=== PATIENT | male | born 1975 | race Caucasian/White ===

== ENCOUNTER 2021-01-14 16:39 | Outpatient (CLI) | payer OTHER, SELFPAY ==
[2021-01-14 17:35] LABS: Hematocrit 37.8 % (42.0-52.0); Hemoglobin 12.4 g/dL (14.0-18.0); Mean Corpuscular HGB Conc 32.8 g/dl (32-36); Mean Corpuscular Hemoglobin 28.1 pg (26-34); Mean Corpuscular Volume 85.7 fl (80-100); Mean Platelet Volume 11.6 fl (7.4-10.4); Platelet Count Result 244 k/mm3 (150-375); Red Blood Count 4.41 M/mm3 (4.6-6.20); Red Cell Distribution Width 13.7 % (11.5-14.5); White Blood Count 6.3 K/mm3 (4.5-10.0)
[2021-01-14 17:45] LABS: Alanine Aminotransferase 28 U/L (4-50); Albumin Level 4.2 g/dL (3.5-5.1); Alkaline Phosphatase 67 U/L (38-126); Anion Gap 8 mmol/L (8-16); Aspartate Amino Transferase 28 U/L (17-59); Bilirubin,Total 0.3 mg/dL (0.2-1.3); Blood Urea Nitrogen 12 mg/dL (9-20); Calcium 9.1 mg/dL (8.4-10.2); Carbon Dioxide 27 mmol/L (22-30); Chloride 104 mmol/L (98-107); Estimated Glomerular Filt Rate > 60; Glucose 89 mg/dL (75-110); Sodium 139 mmol/L (137-145)
[2021-01-14 18:16] LABS: Prostate Specific Antigen 0.6 ng/mL (< OR = 4.0)
== END 2021-01-14 16:40 | disposition home or self-care (01) ==
PROVIDERS: PCP Family Medicine; Visit Provider Nurse Practitioner Family
DX: K92.1 Melena (principal)
CPT/HCPCS: 36415; 80053; 84153; 85027

== ENCOUNTER → 2021-02-15 02:23 | Outpatient (CLI) | payer OTHER, SELFPAY ==
[2021-02-15 17:20] LABS: SARS-CoV-2 RNA PCR Negative
== END ==
PROVIDERS: PCP Family Medicine; Visit Provider Internal Medicine Gastroenterology
DX: Z01.812 Encounter for preprocedural laboratory examination (principal); Z20.822 Contact with and (suspected) exposure to COVID-19
CPT/HCPCS: C9803; U0003; U0005

== ENCOUNTER 2021-02-18 03:23 | Day surgery (SDC) | payer OTHER, SELFPAY ==
[2021-02-08 13:08] VITALS: BMI 28.3
[2021-02-18 10:31] VITALS: BP 121/79; PULSE 76; RESP 18; TEMP 36.5; O2SAT 99; BMI 29.6
[2021-02-18] MEDS: LACTATED RINGERS 1,000 ML 150 ML IV CONT (10:41)
--- NOTE | 2021-02-18 10:59 | WPDANESEPPF ---
Anes - Initial Pre Proc Eval Procedure: Operation Date: 02/18/21 11:00 Proposed Procedures p Colonoscopy - Aris Licea MD Date/Time: 02/18/21 10:59 Surgeon: Aris Licea MD Pre Op Diagnosis: melena Patient Data Age: 45 Gender: M Height: 1.88 m Weight: 104.6 kg Last Vital Signs Temp 36.5 C 02/18/21 10:31 Pulse 76 02/18/21 10:31 Resp 18 02/18/21 10:31 BP 121/79 02/18/21 10:31 Pulse Ox 99 02/18/21 10:31 Allergies Allergy/AdvReac Type Severity Reaction Status Date / Time No Known Allergies Allergy Mild Verified 02/18/21 10:30 Home Medications Medication Instructions Recorded Confirmed Type No Home Medications 02/08/21 02/08/21 History Patient hx anesthesia problems: none Family hx anesthesia problems: none PMFSH Past Medical History Medical History (Updated 01/17/21 @ 08:50 by GOLDIE Rodriguez) BMI 30.0-30.9,adult BMI 35.0-35.9,adult Surgical History Surgical History (Updated 02/18/21 @ 10:59 by Gray De Los Santos MD) H/O colonoscopy Family History Family History Father No problems noted. Mother No problems noted. Sibling No problems noted. 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 Questions were solicited and answers provided to the satisfaction of the patient/family/POA.
--- NOTE | 2021-02-18 11:20 | PM.HPGS ---
History of Present Illness History of Present Illness Consent: Risks, benefits, and alternatives have been discussed and questions answered. Patient agrees to proceed with procedure. Chief complaint: melena Narrative: Rafal Rodriguez is a 45 year old male with rectal bleeding, last colonoscopy ~ 3-4 years ago. Hb 12 Review of Systems Constitutional: Constitutional: Denies headache(s) and Denies weakness Eyes: Eyes: Denies blurry vision ENT: Reports Normal hearing present, Denies headache(s) and Denies neck pain Cardiovascular: Cardiovascular: Denies chest pain and Denies dyspnea Respiratory: Respiratory: Denies dyspnea Gastrointestinal: Gastrointestinal: Reports no additional gastrointestinal complaints Genitourinary: Genitourinary: Denies dysuria Musculoskeletal: Musculoskeletal: Denies neck pain Integumentary/Breasts: Skin/Breast: Denies dry skin Neurologic: Reports Normal hearing present, Denies headache(s) and Denies weakness Psychiatric: Psychiatric: Denies anxiety Endocrine: Endocrine: Denies change in body appearance Hematologic/Lymphatic: Hematologic/Lymphatic: Denies easy bleeding Allergic/Immunologic: Allergic/Immunologic: Denies urticaria [facility] Past Medical History Medical History (Updated 01/17/21 @ 08:50 by GOLDIE Rodriguez) BMI 30.0-30.9,adult BMI 35.0-35.9,adult Surgical History Surgical History (Updated 02/18/21 @ 10:59 by Gray De Los Santos MD) H/O colonoscopy Family History Family History Father No problems noted. Mother No problems noted. Sibling No problems noted. 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 Meds Home Medications and Allergies Home Medications Medication Instructions Recorded Confirmed Type No Home Medications 02/08/21 02/08/21 History Allergies Allergy/AdvReac Type Severity Reaction Status Date / Time No Known Allergies Allergy Mild Verified 02/18/21 10:30 Vital Signs Vital Signs - 24 hr 02/18/21 10:31 Temperature 97.7 F Pulse Rate 76 Respiratory Rate 18 Blood Pressure 121/79 Pulse Oximetry 99 Exam Const: General: comfortable and no acute distress HENMT: General nose exam: Normal nares present Eyes: General: appearance normal, both eyes and all related structures Neck: Neck: no JVD Resp: Auscultation: clear to auscultation bilaterally Cardio: Rate: regular rate Rhythm: regular rhythm GI: Inspection: non-distended GI Palp: Yes Soft to palpation Skin: General skin exam: normal color Neuro: General: gait normal Speech: normal speech Extrem: General: normal to inspection Psych: Mental Status: mental status grossly normal Assessment and Plan Assessment and plan (1) Bloody stool: Code(s): K92.1 - Melena Status: Acute Assessment and Plan: colonoscopy to assess (2) Hemorrhoid: Qualifiers: Hemorrhoid type: unspecified Qualified Code(s): K64.9 - Unspecified hemorrhoids Code(s): K64.9 - Unspecified hemorrhoids Status: Acute (3) Anemia: Code(s): D64.9 - Anemia, unspecified Status: Acute
[2021-02-18 11:41] VITALS: BP 105/68; PULSE 78; RESP 29; O2SAT 97
[2021-02-18 11:51] VITALS: BP 108/74; PULSE 71; RESP 15; O2SAT 99
[2021-02-18 12:01] VITALS: BP 115/75; PULSE 62; RESP 13; O2SAT 99
== END 2021-02-18 12:18 | disposition home or self-care (01) ==
PROVIDERS: PCP Family Medicine; Visit Provider Internal Medicine Gastroenterology
PROC: 0DJD8ZZ Inspection of Lower Intestinal Tract, Via Natural or Artificial Opening Endoscopic (ICD-10-PCS; CPT 45378; principal; 2021-02-18 11:00)
DX: D64.9 Anemia, unspecified (principal); K62.6 Ulcer of anus and rectum; K92.1 Melena; K57.30 Diverticulosis of large intestine without perforation or abscess without bleeding; K64.8 Other hemorrhoids; Z87.891 Personal history of nicotine dependence
CPT/HCPCS: 45380; 88305; C9803; J2704; J7120; U0003; U0005

== ENCOUNTER 2024-09-14 10:55 | Outpatient (CLI) | payer OTHER, SELFPAY ==
[2024-09-14 11:29] LABS: Basophils Percent Auto 0.3 % (0.2-1.2); Eosinophils Percent Auto 0.7 % (0-4.4); Hematocrit 45.3 % (42.0-52.0); Hemoglobin 14.9 g/dL (14.0-18.0); Immature Granulocyte Absolute 0.01 K/mm3 (0.00-0.031); Immature Granulocyte Percent A 0.2 % (0-0.5); Lymphocytes Absolute Auto 1.57 K/mm3 (0.9-3.2); Lymphocytes Percent Auto 27.1 % (18.3-44.2); Mean Corpuscular HGB Conc 32.9 g/dl (32-36); Mean Corpuscular Hemoglobin 29.6 pg (26-34); Mean Corpuscular Volume 89.9 fl (80-100); Mean Platelet Volume 11.4 fl (7.4-10.4); Monocytes Absolute Auto 0.5 K/mm3 (0.1-0.6); Monocytes Percent Auto 8.1 % (2.6-8.5); Neutrophils Absolute Auto 3.7 K/mm3 (1.3-6.7); Neutrophils Percent Auto 63.6 % (45.5-73.1); Platelet Count Result 234 k/mm3 (150-375); Red Blood Count 5.04 M/mm3 (4.6-6.20); Red Cell Distribution Width 12.5 % (11.5-14.5); White Blood Count 5.8 K/mm3 (4.5-10.0)
[2024-09-14 11:52] LABS: Alanine Aminotransferase 32 U/L (6-50); Albumin Level 4.5 g/dL (3.5-5.1); Alkaline Phosphatase 67 U/L (38-126); Anion Gap 9 mmol/L (4-12); Aspartate Amino Transferase 27 U/L (17-59); Bilirubin,Total 0.7 mg/dL (0.2-1.3); Blood Urea Nitrogen 11 mg/dL (9-20); Calcium 9.5 mg/dL (8.4-10.2); Carbon Dioxide 28 mmol/L (22-30); Chloride 102 mmol/L (98-107); Cholesterol 198 mg/dL (0-200); Estimated Glomerular Filt Rate > 60; Glucose 99 mg/dL (65-110); HDL Direct 38 mg/dL; Potassium 4.4 mmol/L (3.4-5.0); Sodium 139 mmol/L (137-145); Triglycerides 118 mg/dL (<150)
[2024-09-14 12:03] LABS: LDL Cholesterol Direct 126 mg/dL
--- OUTSIDE RECORDS SUMMARY | 2024-09-14 12:33 | XMS_ITS | Referral Summary ---
Author Organization [facility] Address [address] [place] [phone] Care Team Providers Care Food Manager Name Role Phone Manuel Fall MD Primary Care Provider [phone] Aris Fajardo MD Unavailable + Seven Almazan MD Unavailable [phone] Allergies No known active allergies Medications hydrocortisone acetate 30 mg suppository UNWRAP AND INSERT 1 SUPPOSITORY RECTALLY DAILY 1 Active hydrocortisone-p ramoxine (PRAMCORT) 1-1 % rectal cream APPLY RECTALLY TO THE AFFECTED AREA 2 TO 3 TIMES DAILY NEEDED FOR ITCHING 1 Active Active Problems Problem Noted Date Diagnosed Date Grade II hemorrhoids 03/14/2021 Social History Tobacco Use Types Packs/Day Years Used Date Smoking Tobacco: Former Cigarettes Smokeless Tobacco: Never Personal Safety Answer Date Recorded Getting School Help Needed Not on file 10/24 Sex and Gender Information Value Date Recorded Sex Assigned at Not on file Legal Sex Male 2:18 PM CDT Gender Identity Not on file Sexual Orientation Not on file Last Filed Vital Signs Vital Sign Reading Time Taken Comments Blood Pressure 131/81 07/18/2021 3:20 PM HARDWOOD FLOOR FINISHER Pulse 85 07/18/2021 3:20 PM [employer]LOOR FINISHER Temperature 36.2 ??C (97.2 ??F) 07/18/2021 3:20 PM CS T Respiratory Rate - - Oxygen Saturation 96% 07/18/2021 3:20 PM H[employer] FLOOR FINISHER Inhaled Oxygen Concentration - - Weight 105.7 kg (233 lb) 07/18/2021 3:20 PM HARD[employer] FLOOR FINISHER Height 188 cm (6' 2 ) 07/18/2021 3:20 PM H[employer] FLOOR FINISHER Body Mass Index 29.92 07/18/2021 3:20 PM HARD[employer]OD FLOOR FINISHER Plan of Treatment Not on file Insurance [facility] CHOICE PLUS Care Teams Food Manager Relationship Specialty Start Date End Date Manuel Fall MD PCP - General Family Medicine 02/21/21 Aris Fajardo MD [address] [place] [address] Referring Physician Gastroenterology 03/13/21 Seven Almazan MD [id number] [place] [address] Surgeon Colon and Rectal Surgery 03/14/21
--- OUTSIDE RECORDS SUMMARY | 2024-09-14 12:33 | XMS_ITS | Clinical Summary ---
Author Organization [facility] Address [address] [place] [phone] Care Team Providers Care Hotel Engineer Name Role Phone Manuel Fall MD Primary Care Provider [phone] Arsi Fajardo MD Unavailable + Seven Almazan MD Unavailable [phone] Allergies No known active allergies Medications hydrocortisone acetate 30 mg suppository UNWRAP AND INSERT 1 SUPPOSITORY RECTALLY DAILY 1 Active hydrocortisone-p ramoxine (PRAMCORT) 1-1 % rectal cream APPLY RECTALLY TO THE AFFECTED AREA 2 TO 3 TIMES DAILY NEEDED FOR ITCHING 1 Active Active Problems Problem Noted Date Diagnosed Date Grade II hemorrhoids 03/14/2021 Surgical History Surgery Date Site/Laterality Comments COLONOSCOPY 02/18/2021 Family History Medical History Relation Name Comments Crohn's disease Brother Colon cancer Maternal Grandfather Relation Name Status Comments Brother Maternal Grandfather Social History Tobacco Use Types Packs/Day Years Used Date Smoking Tobacco: Former Cigarettes Smokeless Tobacco: Never Personal Safety Answer Date Recorded Getting School Help Needed Not on file 10/24 Sex and Gender Information Value Date Recorded Sex Assigned at Not on file Legal Sex Male 2:18 PM CDT Gender Identity Not on file Sexual Orientation Not on file Obstetrics History Last Filed Vital Signs Vital Sign Reading Time Taken Comments Blood Pressure 131/81 07/18/2021 3:20 PM [employer]LLMENT SERVICES DEAN Pulse 85 07/18/2021 3:20 PM [employer]AN Temperature 36.2 ??C (97.2 ??F) 07/18/2021 3:20 PM CS T Respiratory Rate - - Oxygen Saturation 96% 07/18/2021 3:20 PM [employer]AN Inhaled Oxygen Concentration - - Weight 105.7 kg (233 lb) 07/18/2021 3:20 PM [employer] Height 188 cm (6' 2 ) 07/18/2021 3:20 PM [employer]AN Body Mass Index 29.92 07/18/2021 3:20 PM [employer]AN Plan of Treatment Not on file Insurance [facility] CHOICE PLUS Care Teams Hotel Engineer Relationship Specialty Start Date End Date Manuel Fall MD PCP - General Family Medicine 02/21/21 Aris Fajardo MD [address] [place] [address] Referring Physician Gastroenterology 03/13/21 Seven Almazan MD [id number] [place] [address] Surgeon Colon and Rectal Surgery 03/14/21
[2024-09-14 12:55] LABS: Vitamin D 25 Hydroxy 25.1 ng/mL
== END 2024-09-14 10:56 | disposition home or self-care (01) ==
LOC: ANHLAB 10:56
PROVIDERS: PCP Family Medicine
DX: Z13.1 Encounter for screening for diabetes mellitus (principal); E55.9 Vitamin D deficiency, unspecified; Z13.220 Encounter for screening for lipoid disorders; Z13.29 Encounter for screening for other suspected endocrine disorder; Z13.0 Encounter for screening for diseases of the blood and blood-forming organs and certain disorders involving the immune mechanism
CPT/HCPCS: 36415; 80053; 80061; 82306; 84443; 85025

== ENCOUNTER 2024-11-12 09:19 | Outpatient (CLI) | payer OTHER, SELFPAY ==
--- OUTSIDE RECORDS SUMMARY | 2024-11-12 09:24 | XMS_ITS | Referral Summary ---
Author Organization [facility] Address [address] [place] [phone] Care Team Providers Care Model Technician Name Role Phone Manuel Fall MD Primary Care Provider [phone] Aris Fajardo MD Unavailable + Seven Almazan MD Unavailable [phone] Allergies No known active allergies Medications hydrocortisone [...] Comments Blood Pressure 131/81 07/18/2021 3:20 PM WHOLESALE AGRONOMIST Pulse 85 07/18/2021 3:20 PM WHOLESALE AGRONOMIST Temperature 36.2 C (97.2 F) 07/18/2021 3:20 PM WHOLESALE AGRONOMIST Respiratory Rate - - Oxygen Saturation 96% 07/18/2021 3:20 PM WHOLESALE AGRONOMIST Inhaled Oxygen Concentration - - Weight 105.7 kg (233 lb) 07/18/2021 3:20 PM WHOLESALE AGRONOMIST Height 188 cm (6' 2 ) 07/18/2021 3:20 PM WHOLESALE AGRONOMIST Body Mass Index 29.92 07/18/2021 3:20 PM WHOLESALE AGRONOMIST Plan of Treatment Not on file Insurance [facility] CHOICE PLUS Care Teams Model Technician Relationship Specialty Start Date End Date Manuel Fall MD PCP - General Family Medicine 02/21/21 Aris Fajardo MD [address] [place] [address] Referring Physician Gastroenterology 03/13/21 Seven Almazan MD [id number] [place] [address] Surgeon Colon and Rectal Surgery 03/14/21
--- OUTSIDE RECORDS SUMMARY | 2024-11-12 09:24 | XMS_ITS | Clinical Summary ---
Author Organization [facility] Address [address] [place] [phone] Care Team Providers Care Senior Product Designer Name Role Phone Manuel Fall MD Primary Care Provider [phone] Aris Fajardo MD Unavailable + Seven Almazan MD Unavailable [phone] Allergies No known active allergies Medications hydrocortisone [...] Comments Blood Pressure 131/81 07/18/2021 3:20 PM MOBILE UI DESIGNER Pulse 85 07/18/2021 3:20 PM MOBILE UI DESIGNER Temperature 36.2 C (97.2 F) 07/18/2021 3:20 PM MOBILE UI DESIGNER Respiratory Rate - - Oxygen Saturation 96% 07/18/2021 3:20 PM MOBILE UI DESIGNER Inhaled Oxygen Concentration - - Weight 105.7 kg (233 lb) 07/18/2021 3:20 PM MOBILE UI DESIGNER Height 188 cm (6' 2 ) 07/18/2021 3:20 PM MOBILE UI DESIGNER Body Mass Index 29.92 07/18/2021 3:20 PM MOBILE UI DESIGNER Plan of Treatment Not on file Insurance [facility] CHOICE PLUS Care Teams Senior Product Designer Relationship Specialty Start Date End Date Manuel Fall MD PCP - General Family Medicine 02/21/21 Aris Fajardo MD [address] [place] [address] Referring Physician Gastroenterology 03/13/21 Seven Almazan MD [id number] [place] [address] Surgeon Colon and Rectal Surgery 03/14/21
[2024-11-12 10:36] LABS: Vitamin D 25 Hydroxy 59.6 ng/mL
== END 2024-11-12 09:20 | disposition home or self-care (01) ==
LOC: ANHLAB 09:21
PROVIDERS: PCP Family Medicine; Visit Provider Nurse Practitioner Family
DX: E55.9 Vitamin D deficiency, unspecified (principal)
CPT/HCPCS: 36415; 82306

== ENCOUNTER 2025-02-16 14:49 | Outpatient (CLI) | payer OTHER, SELFPAY ==
--- NOTE | ~2025-02-16 | XR_ITS ---
EXAM/ PROCEDURE: XR knee LT min 4V - 02/16/2025 14:55 CDT HISTORY: 49 years old Male with M25.562 - Pain in left knee COMPARISON: None available TECHNIQUE: Four view(s) FINDINGS/ IMPRESSION: There are no fractures or dislocations.Joint spaces are within normal limits. Reviewed, dictated and finalized at location A.
--- OUTSIDE RECORDS SUMMARY | 2025-02-16 14:52 | XMS_ITS | Clinical Summary ---
Author Organization [facility] Address [address] [place] [phone] Care Team Providers Care Cell Room Operator Name Role Phone Manuel Fall MD Primary Care Provider [phone] Aris Fajardo MD Unavailable + Seven Almazan MD Unavailable [phone] Allergies No known active allergies Medications hydrocortisone [...] Comments Blood Pressure 131/81 07/18/2021 3:20 PM DIRECTOR OF EXTENSION WORK Pulse 85 07/18/2021 3:20 PM DIRECTOR OF EXTENSION WORK Temperature 36.2 C (97.2 F) 07/18/2021 3:20 PM DIRECTOR OF EXTENSION WORK Respiratory Rate - - Oxygen Saturation 96% 07/18/2021 3:20 PM DIRECTOR OF EXTENSION WORK Inhaled Oxygen Concentration - - Weight 105.7 kg (233 lb) 07/18/2021 3:20 PM DIRECTOR OF EXTENSION WORK Height 188 cm (6' 2) 07/18/2021 3:20 PM DIRECTOR OF EXTENSION WORK Body Mass Index 29.92 07/18/2021 3:20 PM DIRECTOR OF EXTENSION WORK Plan of Treatment Not on file Insurance [facility] CHOICE PLUS Care Teams Cell Room Operator Relationship Specialty Start Date End Date Manuel Fall MD PCP - General Family Medicine 02/21/21 Aris Fajardo MD [address] [place] [address] Referring Physician Gastroenterology 03/13/21 Seven Almazan MD [id number] [place] [address] Surgeon Colon and Rectal Surgery 03/14/21
--- OUTSIDE RECORDS SUMMARY | 2025-02-16 14:52 | XMS_ITS | Referral Summary ---
Author Organization [facility] Address [address] [place] [phone] Care Team Providers Care Sizer Hand Name Role Phone Manuel Fall MD Primary Care Provider [phone] Aris Fajardo MD Unavailable + Seven Almazan MD Unavailable Allergies No known active allergies Medications hydrocortisone [...] Comments Blood Pressure 131/81 07/18/2021 3:20 PM SUPERVISOR POST WAVE Pulse 85 07/18/2021 3:20 PM SUPERVISOR [employer] WAVE Temperature 36.2 C (97.2 F) 07/18/2021 3:20 PM SUPERVISOR [employer] WAVE Respiratory Rate - - Oxygen Saturation 96% 07/18/2021 3:20 PM SUPERVISOR [employer] WAVE Inhaled Oxygen Concentration - - Weight 105.7 kg (233 lb) 07/18/2021 3:20 PM SUPERVISOR [employer] WAVE Height 188 cm (6' 2) 07/18/2021 3:20 PM SUPERVISOR [employer] WAVE Body Mass Index 29.92 07/18/2021 3:20 PM SUPERVISOR POST WAVE Plan of Treatment Not on file Insurance [facility] CHOICE PLUS Care Teams Sizer Hand Relationship Specialty Start Date End Date Manuel Fall MD PCP - General Family Medicine 02/21/21 Aris Fajardo MD [address] [place] [address] Referring Physician Gastroenterology 03/13/21 Seven Almazan MD [phone] [place] [address] Surgeon Colon and Rectal Surgery 03/14/21
== END 2025-02-16 14:50 | disposition home or self-care (01) ==
PROVIDERS: PCP Family Medicine; Visit Provider Nurse Practitioner Family
DX: M25.562 Pain in left knee (principal)
CPT/HCPCS: 73564

== ENCOUNTER 2025-04-01 07:49 | Outpatient (CLI) | payer OTHER, SELFPAY ==
--- NOTE | 2025-04-01 08:08 | ECG_ITS ---
Test Date: 2025-04-01 08:16:22 Measurements Intervals [place] Rate: 61 P: 56 CO: 157 QRS: 38 QRSD: 110 T: 46 QT: 392 QTc: 396 Interpretive Statements SINUS RHYTHM INCOMPLETE RIGHT BUNDLE BRANCH BLOCK MINIMAL Q WAVES- INFERIOR LEADS BORDERLINE ECG No previous ECG available for comparison Electronically Signed On 04-01-2025 10:36:10 CDT by Venkata Shaffer D.O.
== END 2025-04-01 07:50 | disposition home or self-care (01) ==
PROVIDERS: PCP Nurse Practitioner Family; Visit Provider Anesthesiology
DX: K40.30 Unilateral inguinal hernia, with obstruction, without gangrene, not specified as recurrent (principal); Z87.891 Personal history of nicotine dependence
CPT/HCPCS: 36415; 86850; 86900; 86901; 93005

== ENCOUNTER 2025-04-06 01:48 | Day surgery (SDC) | payer OTHER, SELFPAY ==
[2025-03-31 12:01] VITALS: BMI 29.2
--- NOTE | 2025-03-31 12:08 | PC.NURSE ---
Report to the Outpatient Waiting Room, entrance under the green pavilion located off [facility], at time __0730am on date __04/06/25 . Planned Procedure Time: __0930am .? Time changes happen often and if your time is changed the preop area will call you the afternoon before. - You and your visitor will be asked to self-screen and do not enter if you have any COVID symptoms. Please call surgeon if you need to reschedule. - A mask is optional within the hospital at this time. Patients may have clear liquids (water, carbonated beverages, clear teas, apple juice) until 3 hours prior to surgery with a maximum of 20 ounces. - No food from midnight until time of surgery and no smoking, or chewing tobacco (or any form of nicotine). No chewing gum, candy or mints. (06:30am) Take only the following medications with a SIP of water on the morning of surgery: _NONE DO NOT STOP ANY OF YOUR OTHER PRESCRIPTION MEDICATIONS PRIOR TO SURGERY EXCEPT THE FOLLOWING Hold all vitamins and supplements for 3 days per anesthesiologist. Medications to discontinue per physician NONE Date to take last dose NONE Please no make-up, nail romanian, hairspray, perfume, deodorant, or body powder the day of surgery.? No jewelry (including any body piercings) or valuables the day of surgery, leave them at home.? Please take a shower or bath the night before, or the morning of, surgery with an antibacterial soap.? Wear comfortable, loose fitting clothing.? - Jewelry must be removed prior to entering the operating room.? Rings and piercings that are not removed may be cut off. - The hospital will not accept responsibility for valuables.? - Please leave all valuables, including medications, at home the day of surgery. If you are going home after surgery, a licensed laborer driver must drive you home.? - NO public transportation without another adult if you receive anesthesia. - We recommend that an adult stay with you for 24 hours following discharge. - We also recommend that you do not drive, make important decision, drink alcoholic beverages, or take any drugs that were not prescribed by your health care provider for at least 24 hours after your discharge time. Follow any additional instructions given to you from your surgeon. Telephone instructions given to ___Patient and asked if any additional questions and then verbalized understanding. Patient advised to call surgeon office or pre surgery nurse liaison [phone] if any additional questions.
[2025-04-06] VITALS (10 sets, daily range): BP systolic 109–127; BP diastolic 64–82; PULSE 64–83; RESP 10–16; TEMP 36.1–36.5; O2SAT 96–100
--- NOTE | 2025-04-06 07:25 | P.HP_ITS ---
H&P: HPI History of Present Illness Date/Time: 04/06/25 07:25 Chief Complaint: incarcerated left inguinal hernia Narrative: Rafal is a 49 y/o male who presents to the office at the request of GOLDIE Rivera for an evaluation of left groin discomfort and bulging. Patient reports he was chopping wood approximately 5 years ago when he first noticed the bulging. He states he tolerates a normal diet and has regular BM's and urine output. He states it has increased in size over the years and will enlarge throughout the day with activity. Review of Systems Review of Systems: All systems reviewed & are unremarkable except as noted in HPI and below PMFSH Past Medical History Medical History BMI 29.0-29.9,adult BMI 30.0-30.9,adult BMI 35.0-35.9,adult Surgical History Surgical History H/O colonoscopy Family History Family History Father No problems noted. Mother No problems noted. Sibling No problems noted. Social History Social History Smoking packs per day: 2 Smoking cigarettes per day: 40.0 Years smoked: 2 Smoking pack-years: 4.00 Smoking status: Former smoker Tobacco type: cigarettes Second hand tobacco smoke exposure: Yes Smoking end date: 08/10/09 Alcohol intake: current Drinks per week: 3 Alcohol use details: Monthly Substance use: never Substance use type: does not use Do You Feel Safe in your Home?: Yes Lack of Transportation: No Lack of Food: Never True Current Housing: I Have Housing Concerned About Future Housing: No Difficulty Paying Gas/Electric Bills: No Difficulty Paying for Meds: No Currently Unemployed: No Education: High School Diploma/GED Difficulty w/ Childcare or Family Care: No Living arrangements: with family Occupation/Education: occupation 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 (if verbalized by the patient): Male Spiritual care concerns: No Meds Home Medications and Allergies Home Medications ?Medication ?Instructions ?Recorded ?Confirmed ?Type myezbkwo-dvp-oovnpl-choline-bioflavonoids 1 tablet PO DAILY 03/31/25 03/31/25 History 111 mg-111 mg-100 mg tablet Allergies Allergy/AdvReac Type Severity Reaction Status Date / Time No Known Allergies Allergy Mild Verified 03/31/25 11:59 Exam Const: General: cooperative, comfortable and no acute distress Resp: Auscultation: clear to auscultation bilaterally Cardio: Rate: regular rate Rhythm: regular rhythm GI: Inspection: normal to inspection, non-distended and visible herniation GI Palp: Yes abdominal tenderness, Yes Soft to palpation and Yes Hernia present Other: moderate-sized incarcerated left inguinal hernia, mild tenderness to palpation Assessment and Plan Assessment and plan (1) Incarcerated left inguinal hernia: Code(s): K40.30 - Unilateral inguinal hernia, with obstruction, without gangrene, not specified as recurrent Status: Acute Assessment and Plan: will set up robotic assisted repair incarcerated left inguinal hernia with mesh
--- NOTE | 2025-04-06 07:26 | WPDHPUPDATE1 ---
History and Physical Update Update Date/Time: 04/06/25 07:26 History and Physical has been reviewed, including an updated exam of the patient. There are NO changes in the patient's condition. Risks, benefits, and alternatives have been discussed and questions answered. Patient agrees to proceed with procedure.
[2025-04-06] MEDS: ACETAMINOPHEN 500 MG TABLET 1000 MG PO (08:19)
[2025-04-06] MEDS: LACTATED RINGERS 1,000 ML 30 ML IV CONT ×2 (08:20→11:10)
[2025-04-06] MEDS: KETOROLAC 15 MG/ML VIAL (*BKC) IV PUSH (08:25)
--- NOTE | 2025-04-06 09:25 | P.PNAN_ITS ---
Anes - Initial Pre Proc Eval Procedure: Operation Date: 04/06/25 09:30 Proposed Procedures p Robotic Incarcerated Left Inguinal Hernia Repair with Mesh - Maya Saab MD Date/Time: 04/06/25 09:25 Surgeon: Maya Saab MD Pre Op Diagnosis: Incarcerated Left Inguinal Hernia Patient Data Age: 50 Gender: M Height: 1.88 m Weight: 104.4 kg Last Vital Signs Temp 97.7 F 04/06/25 08:42 Pulse 70 04/06/25 08:42 Resp 16 04/06/25 08:42 BP 127/80 04/06/25 08:42 Pulse Ox 99 04/06/25 08:42 O2 Del Method Room Air 04/06/25 08:42 Allergies Allergy/AdvReac Type Severity Reaction Status Date / Time No Known Allergies Allergy Mild Verified 04/06/25 07:52 Home Medications ?Medication ?Instructions ?Recorded ?Confirmed ?Type cbozdfxw-qpk-sigbof-choline-bioflavonoids 1 tablet PO DAILY 03/31/25 04/06/25 History 111 mg-111 mg-100 mg tablet Patient hx anesthesia problems: none Family hx anesthesia problems: none Results Review: All pre-operative results and documents have been reviewed as part of the pre- operative evaluation. [facility] Past Medical History Medical History BMI 29.0-29.9,adult BMI 30.0-30.9,adult BMI 35.0-35.9,adult Surgical History Surgical History H/O colonoscopy Family History Family History Father No problems noted. Mother No problems noted. Sibling No problems noted. Social History Social History Smoking packs per day: 2 Smoking cigarettes per day: 40.0 Years smoked: 2 Smoking pack-years: 4.00 Smoking status: Former smoker Tobacco type: cigarettes Second hand tobacco smoke exposure: Yes Smoking end date: 08/10/09 Alcohol intake: current Drinks per week: 3 Alcohol use details: Monthly Substance use: never Substance use type: does not use Do You Feel Safe in your Home?: Yes Lack of Transportation: No Lack of Food: Never True Current Housing: I Have Housing Concerned About Future Housing: No Difficulty Paying Gas/Electric Bills: No Difficulty Paying for Meds: No Currently Unemployed: No Education: High School Diploma/GED Difficulty w/ Childcare or Family Care: No Living arrangements: with family Occupation/Education: occupation 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 Gender identity (if verbalized by the patient): Male Spiritual care concerns: No Anes - Eval Final PreProcedure Day of Procedure 04/06/25 09:25 Patient weight: normal Heart: regular rate and rhythm Lungs: clear to auscultation Airway: Mallampati scale class II Neurological: alert and oriented Last oral intake: >/= 8 hours ASA classification: II Emergent: no Anesthetic plan: proceed Anesthesia type and monitoring: general ETT and standard monitoring Results Review: All pre-operative results and documents have been reviewed as part of the pre- operative evaluation. Informed Consent: The patient's anesthetic plan and its attendant risks and benefits were discussed with the patient/family/POA. Questions were solicited and answers provided to the satisfaction of the patient/family/POA.
[2025-04-06] MEDS: ceFAZolin 2 GM in SODIUM CHLORIDE 0.9% IV 50 ML 100 ML IVPB (09:55)
[2025-04-06] MEDS: BUPIVACAINE/EPINEPHRINE 0.5% 30 ML VIAL INFILTRATE (10:21)
--- NOTE | 2025-04-06 11:17 | W.PM.PROC2 ---
Procedure Note - Detailed Date of Procedure 04/06/25 Pre-op Diagnosis Incarcerated Left Inguinal Hernia Post-op Diagnosis Same Procedure Performed robotic assisted repair incarcerated left inguinal hernia with mesh Surgeon Maya Saab MD Anesthesia General and Local Indications 50-year-old male presenting to the office with an incarcerated left inguinal hernia. Patient reports hernia has been progressively worsening over multiple years. Findings Incarcerated left inguinal hernia with noted incarcerated sigmoid colon Description of Procedure Patient was brought into the operating room and placed in the supine position. After adequate induction of general anesthesia, the patient was prepped and draped in normal sterile fashion. A time-out was then done to verify the patient's identity, as well as the procedure being performed. I began by making a 8 mm incision in the supraumbilical region, a Veress needle was then placed into the peritoneal cavity. CO2 gas was then insufflated and after adequate pneumoperitoneum was achieved, the Veress needle was removed. I then placed an 8 mm trocar through this incision. I then placed the endoscope through this trocar site and under direct visualization placed 2 further 8 mm ports in the right and left mid abdomen. The [employer] robot was then docked to the 3 trocar sites. I then scrubbed out and went to the robotic console. Upon examining the pelvis, it was noted that the patient had a large incarcerated left inguinal hernia. The right side was examined and no hernia defect was noted. Incarcerated sigmoid colon was noted within the hernia and this was reduced both bluntly and sharply with the cautery. Once reduced, the sigmoid colon was examined and noted to be pathology free and viable. I then began by making a preperitoneal flap approximately 6 cm superior to the defect. This flap was carried medially past the umbilical ligaments and laterally to the transversalis. It then began dissection of my medial compartment taking this down to the pubic tubercle. I then began the lateral dissection taking this down to the transversalis fascia. Once these compartments were achieved, I began dissection around the cord structures. A large sized indirect hernia was noted at this point. Using careful dissection, was able to reduce indirect hernia sac off the cord structures. There was also noted to be a large lipoma of the cord that was reduced back into the preperitoneal space. Once this was adequately done, I went ahead and placed a large piece of 3D Max mesh into the abdominal cavity. The mesh was carefully positioned, centering the center of the mesh over the indirect defect. Once this was done, was very satisfied with our repair. Using 3-0 Vicryl sutures, I tacked the mesh medially to Daryl's ligament. Two lateral sutures were placed from the mesh to the transversalis fascia. I then closed the peritoneal flap with a running 2.0 V Lock suture. The abdomen was then desufflated, and all ports were removed. All incisions were then closed with the 4.0 monocryl suture. Dermabond was placed on each wound. The patient tolerated the procedure well, was extubated in the operating room postoperatively, and will now be transferred to the recovery room in stable condition. Implants large 3DMax mesh Estimated Blood Loss 10 Drains No Packing No Pathology None sent Complications No immediate complications Condition Stable Disposition PACU [facility] Billing Surgery - Charge Forward: Surgery Billing
== END 2025-04-06 13:22 | disposition home or self-care (01) ==
PROVIDERS: PCP Nurse Practitioner Family; Visit Provider Surgery
PROC: 8E0Y4CZ Robotic Assisted Procedure of Lower Extremity, Percutaneous Endoscopic Approach (ICD-10-PCS; CPT 49650; principal; 2025-04-06 09:30)
DX: K40.30 Unilateral inguinal hernia, with obstruction, without gangrene, not specified as recurrent (principal); Z87.891 Personal history of nicotine dependence
CPT/HCPCS: 49650; S2900; J0690; A9270; C1781; J1100; J1885; J2250; J2405; J2704; J3010; J7120

== ENCOUNTER 2025-07-19 06:52 | Outpatient (CLI) | payer OTHER, SELFPAY ==
--- NOTE | ~2025-07-19 | MR_ITS ---
EXAMINATION: MR knee LT wo con DATE: 07/19/2025 07:25 INDICATION: Pain TECHNIQUE: Magnetic resonance imaging (MRI) of the knee was performed without intravenous contrast. Sequences included axial PD-weighted FS FSE, coronal PD- weighted FSE and PD-weighted FS FSE, sagittal PD-weighted FSE, and sagittal T2- weighted FS FSE. COMPARISON: X-rays from February 16, 2025 FINDINGS: No fracture subluxation or dislocation present. Mild diffuse tricompartmental osteoarthritic degenerative changes are developing with scattered areas of cartilaginous thinning but no severe degenerative changes. Trace joint effusion present. Oblique/somewhat vertically oriented posterior horn medial meniscal tear extends through the red portion seen on images 7 through 9 of series 9. There is also a small vertical tear in the red-white junction or possibly white zone as seen on image 8 series 9 also involving the posterior horn. The anterior horn appears intact. The lateral meniscus appears intact. ACL fibers appear somewhat diminutive but no discrete tear identified. PCL appears intact. Collateral ligaments appear intact. Extra articular soft tissues including quadriceps and infrapatellar tendon appear intact. IMPRESSION: 1. Posterior horn medial meniscal tear, mildly complex with possible both horizontal and vertical components. 2. Diminutive appearance of the ACL but no discrete ligamentous tear seen. 3. Mild tricompartmental osteoarthritic degenerative changes. Reviewed, dictated and finalized at location A. D AND [facility] PSYCHOLOG[facility] IMPRESSION: 1. Posterior horn medial meniscal tear, mildly complex with possible both horiz ontal and vertical components. 2. Diminutive appearance of the ACL but no discrete ligamentous tear seen. 3. Mild tricompartmental osteoarthritic degenerative changes.
== END 2025-07-19 06:53 | disposition home or self-care (01) ==
PROVIDERS: PCP Nurse Practitioner Family; Visit Provider Nurse Practitioner Family
DX: M17.12 Unilateral primary osteoarthritis, left knee (principal); S83.242D Other tear of medial meniscus, current injury, left knee, subsequent encounter; X58.XXXD Exposure to other specified factors, subsequent encounter
CPT/HCPCS: 73721